=== PATIENT | female | born 1955 | race Caucasian/White ===

== ENCOUNTER → 2018-02-21 09:47 | Outpatient (CLI) | payer BC, SELFPAY ==
[2018-02-21 10:17] LABS: Abs Immature Grans 0.01 k/cumm (0.0-0.09); Absolute Basophil Count 0.01 k/cumm (0.0-0.2); Absolute Eosinophil Count 0.12 k/cumm (0.0-0.7); Absolute Lymphocyte Count 1.85 k/cumm (1.2-3.4); Absolute Monocyte Count 0.31 k/cumm (0.11-0.7); Absolute Neutrophil Count 3.17 k/cumm (1.2-6.7); Basophils % 0.2; Eosinophils % 2.2; HCT 37.1 % (36.0-46.0); HGB 12.6 g/dL (12.0-15.5); Immature Grans % 0.2; Lymphocytes % 33.8; Mean Corpuscular Hemoglobin 31.7 pg (27.0-33.0); Mean Corpuscular Volume 93.5 fL (80-95); Mean Platelet Volume 9.8 fL (8.0-11.0); Monocytes % 5.7; Neutrophils % 57.9; Platelet Count 207 x1000/uL (130-400); RBC 3.97 m/cumm (4.00-5.20); RBC Distribution Width 12.4 % (11.7-14.6); White Blood Cell Count 5.47 k/cumm (4.4-10.8)
[2018-02-21 10:52] LABS: ESR 21 MM/HR (0-30)
[2018-02-21 11:07] LABS: ALT 28 U/L (12-78); AST 19 U/L (15-37); Albumin 3.9 g/dL (3.4-5.0); Alkaline Phosphatase 64 U/L (46-116); Anion Gap 6.4 mmol/L (3-11); BUN 13 mg/dL (7-18); Bilirubin, Total 0.4 mg/dL (0.2-1.0); C-Reactive Protein 0.12 mg/dL (0.0-0.3); CO2 29.6 mmol/L (21.0-32.0); CREATININE 0.84 mg/dL (0.55-1.02); Calcium 8.6 mg/dL (8.5-10.1); Chloride 104 mmol/L (98-107); Glucose 82 mg/dL (70-100); Potassium 4.4 mmol/L (3.5-5.1); Sodium 140 mmol/L (136-145); Total Protein 7.4 g/dL (6.4-8.2)
[2018-02-23 18:07] LABS: Infliximab 18 mcg/mL (<=5.0)
== END ==
PROVIDERS: PCP Family Medicine Adult Medicine; Visit Provider Internal Medicine Gastroenterology
DX: R19.7 Diarrhea, unspecified (principal); K52.9 Noninfective gastroenteritis and colitis, unspecified; Z79.899 Other long term (current) drug therapy
CPT/HCPCS: 36415; 80053; 82397; 85652; 85025; 86140

== ENCOUNTER 2018-03-02 12:55 | Outpatient (REF) | payer BC, SELFPAY ==
[2018-03-03 11:35] LABS: Campylobacter PCR SEE COMMENTS; Salmonella PCR SEE COMMENTS; Shiga Toxin PCR SEE COMMENTS; Shigella/Enteroinvasive Ecoli SEE COMMENTS
== END 2018-03-02 13:15 ==
LOC: LBN 12:55
PROVIDERS: PCP Family Medicine Adult Medicine; Visit Provider Internal Medicine Gastroenterology
DX: K52.9 Noninfective gastroenteritis and colitis, unspecified (principal); R19.7 Diarrhea, unspecified
CPT/HCPCS: 87505

== ENCOUNTER 2018-09-19 11:00 | Outpatient (CLI) | payer BC, MEDICARE, SELFPAY ==
[2018-09-21 23:46] LABS: Infliximab 60 mcg/mL (<=5.0)
== END 2018-09-19 11:20 ==
PROVIDERS: PCP Family Medicine Adult Medicine; Visit Provider Internal Medicine Gastroenterology
DX: K51.214 Ulcerative (chronic) proctitis with abscess (principal); Z79.899 Other long term (current) drug therapy
CPT/HCPCS: 36415; 82397

== ENCOUNTER 2018-09-20 12:40 | Outpatient (REF) | payer BC, MEDICARE, SELFPAY ==
[2018-09-21 10:35] LABS: Campylobacter PCR SEE COMMENTS; Salmonella PCR SEE COMMENTS; Shiga Toxin PCR SEE COMMENTS; Shigella/Enteroinvasive Ecoli SEE COMMENTS
[2018-09-22 20:33] LABS: Calprotectin 150 mcg/g
== END 2018-09-20 13:00 ==
LOC: LBN 12:40
PROVIDERS: PCP Family Medicine Adult Medicine; Visit Provider Internal Medicine Gastroenterology
DX: R19.7 Diarrhea, unspecified (principal); K52.9 Noninfective gastroenteritis and colitis, unspecified
CPT/HCPCS: 87505; 83993; 87324

== ENCOUNTER 2019-04-23 10:26 | Outpatient (CLI) | payer MEDICARE, BC, SELFPAY ==
[2019-04-23 11:56] LABS: C-Reactive Protein 0.13 mg/dL (0.0-0.3)
[2019-04-25 22:11] LABS: Infliximab 32 mcg/mL (<=5.0)
== END 2019-04-23 10:46 ==
PROVIDERS: PCP Family Medicine Adult Medicine; Visit Provider Internal Medicine Gastroenterology
DX: K50.118 Crohn's disease of large intestine with other complication (principal)
CPT/HCPCS: 36415; 82397; 86140

== ENCOUNTER 2019-08-30 15:59 | Outpatient (CLI) | payer MEDICARE, BC, SELFPAY ==
[2019-09-09 11:50] LABS: Infliximab 18 mcg/mL (<=5.0)
== END 2019-08-30 16:19 ==
PROVIDERS: PCP Family Medicine Adult Medicine; Visit Provider Internal Medicine Gastroenterology
DX: K50.118 Crohn's disease of large intestine with other complication (principal); Z79.899 Other long term (current) drug therapy
CPT/HCPCS: 36415; 82397

== ENCOUNTER 2019-10-11 16:27 | Outpatient (CLI) | payer MEDICARE, BC, SELFPAY ==
[2019-10-11 16:54] LABS: Abs Immature Grans 0.01 k/cumm (0.0-0.09); Absolute Basophil Count 0.01 k/cumm (0.0-0.2); Absolute Eosinophil Count 0.12 k/cumm (0.0-0.7); Absolute Lymphocyte Count 2.35 k/cumm (1.2-3.4); Absolute Monocyte Count 0.42 k/cumm (0.11-0.7); Basophils % 0.2; Eosinophils % 1.9; HCT 36.1 % (36.0-46.0); HGB 12.4 g/dL (12.0-15.5); Immature Grans % 0.2 %; Lymphocytes % 37.2; Mean Corp. HGB Concentration 34.3 g/dL (32.0-36.0); Mean Corpuscular Hemoglobin 30.2 pg (27.0-33.0); Mean Platelet Volume 9.9 fL (8.0-11.0); Monocytes % 6.7; Neutrophils % 53.8; Platelet Count 271 x1000/uL (130-400); RBC Distribution Width 12.7 % (11.7-14.6); White Blood Cell Count 6.31 k/cumm (4.4-10.8)
[2019-10-11 18:26] LABS: ALT 34 U/L (14-59); AST 18 U/L (15-37); Albumin 3.9 g/dL (3.4-5.0); Alkaline Phosphatase 70 U/L (46-116); Bilirubin, Direct 0.09 mg/dL (0.00-0.20); Bilirubin, Total 0.3 mg/dL (0.2-1.0); C-Reactive Protein 0.17 mg/dL (0.0-0.3); Total Protein 7.1 g/dL (6.4-8.2)
[2019-10-15 18:26] LABS: Infliximab 18 mcg/mL (<=5.0)
[2019-10-17 15:04] LABS: TB Interpretation Negative (Negative); TB2 Ag minus Nil 0.01 IU/mL
== END 2019-10-11 16:47 ==
PROVIDERS: PCP Family Medicine Adult Medicine; Visit Provider Internal Medicine Gastroenterology
DX: K50.118 Crohn's disease of large intestine with other complication (principal); Z79.899 Other long term (current) drug therapy
CPT/HCPCS: 36415; 80076; 82397; 85025; 86140; 86480

== ENCOUNTER 2020-01-03 03:30 | Outpatient (CLI) | payer MEDICARE, BC, SELFPAY ==
[2020-01-03 15:51] LABS: Abs Immature Grans 0.01 k/cumm (0.0-0.09); Absolute Basophil Count 0.02 k/cumm (0.0-0.2); Absolute Eosinophil Count 0.17 k/cumm (0.0-0.7); Absolute Lymphocyte Count 3.29 k/cumm (1.2-3.4); Absolute Monocyte Count 0.55 k/cumm (0.11-0.7); Absolute Neutrophil Count 3.61 k/cumm (1.2-6.7); Basophils % 0.3; Eosinophils % 2.2; HCT 34.8 % (36.0-46.0); HGB 12.1 g/dL (12.0-15.5); Immature Grans % 0.1 %; Mean Corp. HGB Concentration 34.8 g/dL (32.0-36.0); Mean Corpuscular Hemoglobin 30.6 pg (27.0-33.0); Mean Corpuscular Volume 87.9 fL (80-95); Mean Platelet Volume 9.7 fL (8.0-11.0); Monocytes % 7.2; Neutrophils % 47.2; Platelet Count 257 x1000/uL (130-400); RBC 3.96 m/cumm (4.00-5.20); RBC Distribution Width 12.3 % (11.7-14.6); White Blood Cell Count 7.65 k/cumm (4.4-10.8)
[2020-01-03 17:07] LABS: ALT 30 U/L (14-59); AST 20 U/L (15-37); Albumin 4.2 g/dL (3.4-5.0); Alkaline Phosphatase 66 U/L (46-116); Bilirubin, Direct 0.14 mg/dL (0.00-0.20); Bilirubin, Total 0.4 mg/dL (0.2-1.0); C-Reactive Protein 0.05 mg/dL (0.0-0.3); Total Protein 7.3 g/dL (6.4-8.2)
== END 2020-01-03 03:50 ==
PROVIDERS: PCP Family Medicine Adult Medicine; Visit Provider Internal Medicine Gastroenterology
DX: K50.119 Crohn's disease of large intestine with unspecified complications (principal)
CPT/HCPCS: 36415; 80076; 85025; 86140

== ENCOUNTER 2020-04-01 01:11 | Outpatient (CLI) | payer MEDICARE, BC, SELFPAY ==
[2020-04-01 16:55] LABS: Abs Immature Grans 0.02 10^3/uL (0.0-0.06); Absolute Basophil Count 0.01 10^3/uL (0.0-0.2); Absolute Eosinophil Count 0.18 10^3/uL (0.0-0.7); Absolute Lymphocyte Count 2.34 10^3/uL (1.2-3.4); Absolute Neutrophil Count 4.43 10^3/uL (1.2-6.7); Basophils % 0.1; Eosinophils % 2.4; HCT 33.1 % (36.0-46.0); HGB 11.3 g/dL (11.2-15.7); Immature Grans % 0.3; Lymphocytes % 31.3; MCH 30.6 pg (27.0-33.0); MCHC 34.1 % (32.0-36.0); MCV 89.7 fL (80-95); MPV 9.5 fL (8.0-11.0); Monocytes % 6.7; Neutrophils % 59.2; Nucleated RBC 0 %; Platelet Count 221 10^3/uL (130-400); RBC 3.69 10^6/uL (3.93-5.22); RDW 12.5 % (11.7-14.6); RDW-SD 40.6 fL; WBC 7.48 10^3/uL (4.4-10.8)
[2020-04-01 17:38] LABS: C-Reactive Protein 0.14 mg/dL (0.0-0.3)
[2020-04-01 17:39] LABS: ALT 26 U/L (14-59); AST 17 U/L (15-37); Albumin 3.9 g/dL (3.4-5.0); Alkaline Phosphatase 60 U/L (46-116); Bilirubin, Direct 0.11 mg/dL (0.00-0.20); Bilirubin, Total 0.3 mg/dL (0.2-1.0)
== END 2020-04-01 01:31 ==
PROVIDERS: PCP Family Medicine Adult Medicine; Visit Provider Internal Medicine Gastroenterology
DX: K50.119 Crohn's disease of large intestine with unspecified complications (principal)
CPT/HCPCS: 36415; 80076; 85025; 86140

== ENCOUNTER 2020-07-30 03:54 | Outpatient (CLI) | payer MEDICARE, BC, SELFPAY ==
[2020-07-30 10:59] LABS: Abs Immature Grans 0.03 10^3/uL (0.0-0.06); Absolute Basophil Count 0.02 10^3/uL (0.0-0.2); Absolute Lymphocyte Count 2.68 10^3/uL (1.2-3.4); Absolute Monocyte Count 0.58 10^3/uL (0.1-0.8); Absolute Neutrophil Count 5.57 10^3/uL (1.2-6.7); Basophils % 0.2; Eosinophils % 2.2; HCT 36.9 % (36.0-46.0); HGB 12.5 g/dL (11.2-15.7); Immature Grans % 0.3; Lymphocytes % 29.5; MCH 31.3 pg (27.0-33.0); MCHC 33.9 % (32.0-36.0); MCV 92.3 fL (80-95); MPV 9.2 fL (8.0-11.0); Monocytes % 6.4; Neutrophils % 61.4; Nucleated RBC 0 %; Platelet Count 228 10^3/uL (130-400); RDW 12.5 % (11.7-14.6); RDW-SD 42.5 fL; WBC 9.08 10^3/uL (4.4-10.8)
[2020-07-30 11:53] LABS: ALT 27 U/L (14-59); AST 14 U/L (15-37); Alkaline Phosphatase 51 U/L (46-116); Bilirubin, Direct 0.08 mg/dL (0.00-0.20); Bilirubin, Total 0.5 mg/dL (0.2-1.0); C-Reactive Protein 0.12 mg/dL (0.0-0.3); Total Protein 7.3 g/dL (6.4-8.2)
[2020-08-04 12:57] LABS: Infliximab 25 mcg/mL (<=5.0)
== END 2020-07-30 03:55 | disposition home or self-care (01) ==
PROVIDERS: PCP Family Medicine Adult Medicine; Visit Provider Internal Medicine Gastroenterology
DX: K50.118 Crohn's disease of large intestine with other complication (principal); Z51.81 Encounter for therapeutic drug level monitoring
CPT/HCPCS: 36415; 80076; 82397; 85025; 86140

== ENCOUNTER 2021-02-18 03:44 | Outpatient (CLI) | payer MEDICARE, BC, SELFPAY ==
[2021-02-18 17:11] LABS: Abs Immature Grans 0.02 10^3/uL (0.0-0.06); Absolute Basophil Count 0.03 10^3/uL (0.0-0.2); Absolute Eosinophil Count 0.27 10^3/uL (0.0-0.7); Absolute Lymphocyte Count 2.44 10^3/uL (1.2-3.4); Absolute Monocyte Count 0.42 10^3/uL (0.1-0.8); Absolute Neutrophil Count 4.08 10^3/uL (1.2-6.7); Basophils % 0.4; Eosinophils % 3.7; HCT 35.7 % (36.0-46.0); HGB 11.9 g/dL (11.2-15.7); Immature Grans % 0.3; Lymphocytes % 33.6; MCH 29.5 pg (27.0-33.0); MCHC 33.3 % (32.0-36.0); MCV 88.4 fL (80-95); MPV 12.5 fL (8.0-11.0); Monocytes % 5.8; Neutrophils % 56.2; Nucleated RBC 0 %; RBC 4.04 10^6/uL (3.93-5.22); RDW 12.1 % (11.7-14.6); RDW-SD 39.6 fL; WBC 7.26 10^3/uL (4.4-10.8)
[2021-02-18 17:37] LABS: ALT 21 U/L (14-59); AST 16 U/L (15-37); Albumin 3.8 g/dL (3.4-5.0); Alkaline Phosphatase 66 U/L (46-116); Bilirubin, Direct 0.1 mg/dL (0.0-0.2); Bilirubin, Total 0.3 mg/dL (0.2-1.0); C-Reactive Protein 0.13 mg/dL (0.0-0.3); Total Protein 7.4 g/dL (6.4-8.2)
[2021-02-18 17:40] LABS: Diff Comment PLT Morph Reviewed; RBC Morphology Normal
[2021-02-24 01:13] LABS: Infliximab 47 mcg/mL (<=5.0)
== END 2021-02-18 03:45 | disposition home or self-care (01) ==
LOC: LBO 03:44
PROVIDERS: PCP Family Medicine Adult Medicine; Visit Provider Internal Medicine Gastroenterology
DX: K50.113 Crohn's disease of large intestine with fistula (principal)
CPT/HCPCS: 80076; 82397; 85025; 86140

== ENCOUNTER 2021-03-02 13:11 | Outpatient (REF) | payer MEDICARE, BC, SELFPAY ==
[2021-03-06 13:58] LABS: Calprotectin 24.4 mcg/g
== END 2021-03-02 13:12 | disposition home or self-care (01) ==
LOC: LBN 13:11
PROVIDERS: PCP Family Medicine Adult Medicine; Visit Provider Internal Medicine Gastroenterology
DX: K50.113 Crohn's disease of large intestine with fistula (principal)
CPT/HCPCS: 83993

== ENCOUNTER 2021-06-01 02:52 | Outpatient (CLI) | payer MEDICARE, BC, SELFPAY ==
[2021-06-04 02:22] LABS: Infliximab 21 mcg/mL (<=5.0)
== END 2021-06-01 02:53 | disposition home or self-care (01) ==
LOC: LBO 02:52
PROVIDERS: PCP Family Medicine Adult Medicine; Visit Provider Internal Medicine Gastroenterology
DX: K50.113 Crohn's disease of large intestine with fistula (principal)
CPT/HCPCS: 36415; 82397